=== PATIENT | female | born 1975 | race Caucasian/White ===

== ENCOUNTER 2016-09-13 21:27 | Emergency (ER) | payer BC ==
--- NOTE | 2016-09-13 23:25 | ED ORDER SUMMARY ---
..... Patient: LOU CONTE OrderSheet [facility] VisitID: [id number] [place] [address] 41y, F Registration Date/Time: 09/13/2016 ORDER SHEET Weight: 79.3 kg (stated) Allergies: No Known Drug Allergy GENERAL ORDERS: MEDICATION ORDERS: Toradol IM 60 mg (NOW) (22:02 09/13/2016 Gaurav GENAO) (Ack 22:19 HSoule) (22:34 HSoule) Soma PO 350 mg (NOW) (22:02 09/13/2016 Gaurav GENAO) (Ack 22:19 HSoule) (22:35 HSoule) Dilaudid IM 1 mg (NOW) (22:02 09/13/2016 Gaurav GENAO) (Ack 22:19 HSoule) (22:35 HSoule) IV FLUIDS: ORDER SHEET NOTES: [Electronically signed by Venus Pascual (00:03 09/14/2016)] [Electronically signed by Les Skelton MD (20:48 09/14/2016)] [Electronically locked/signed by Venus Pascual (00:03 09/14/2016)]
--- NOTE | 2016-09-13 23:25 | ED ORDER SUMMARY ---
..... Patient: LOU CONTE OrderSheet [facility] VisitID: [id number] [place] [address] 41y, F Registration Date/Time: 09/13/2016 ORDER SHEET Weight: 79.3 kg (stated) Allergies: No Known Drug Allergy GENERAL ORDERS: MEDICATION ORDERS: Toradol IM 60 mg (NOW) (22:02 09/13/2016 Gaurav GENAO) (Ack 22:19 HSoule) (22:34 HSoule) Soma PO 350 mg (NOW) (22:02 09/13/2016 Gaurav GENAO) (Ack 22:19 HSoule) (22:35 HSoule) Dilaudid IM 1 mg (NOW) (22:02 09/13/2016 Gaurav GENAO) (Ack 22:19 HSoule) (22:35 HSoule) IV FLUIDS: ORDER SHEET NOTES: [Electronically signed by Venus Pascual (00:03 09/14/2016)] [Electronically signed by Les Skelton MD (20:48 09/14/2016)] [Electronically locked/signed by Venus Pascual (00:03 09/14/2016)]
--- NOTE | 2016-09-13 23:25 | ED CLINICAL REPORT ---
Clinical Report - Physicians/Mid Levels [facility] [address] [place] [address] 09/13/2016 21:29 Patient: LOU CONTE Time Seen: 21:45 Sep 13 2016. Arrived- By private vehicle. Historian- patient. CPT: ER phys charges level 4 (#[id number]). HISTORY OF PRESENT ILLNESS Chief Complaint: BACK PAIN. 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 (4 days). ( Patient reports that she was gardening four days ago and after she felt pretty stiff with some low back pain. She states she went to the chiropractor and has been taking anti-inflammatory for pain without relief. She states today she felt like she could not turn herself in bed, she cannot stand straight and she states she has severe muscle spasms. She denies serious injury but states she has had some lower back degeneration and issues in the past.). No history of recent trauma. and it is still present. It is described as being moderate in degree and in the area of the lower lumbar spine. The quality is noted to be sharp, dull, aching, "pain" and similar to prior episodes. No bladder dysfunction, bowel dysfunction, sensory loss or motor loss. Additional history - HAs been taking ibuprofen and vicodin. Pain seemed to get worse after chiropractor visit yesterday. Patient notes an injury. Mechanism of injury- she was lifting, turning and bending. No other injury. Similar symptoms previously: Recent medical care: Not recently seen/assessed. REVIEW OF SYSTEMS No fever, chills, eye irritation, difficulty with urination or urinary frequency. No hematuria, skin rash, headache, cough or difficulty breathing. No chest pain, abdominal pain, nausea or vomiting. All systems otherwise negative, except as recorded above. PAST HISTORY Ovarian cyst . Tubal Ligation. Problems: no known problems. Medications: None. Allergies: No Known Drug Allergy. SOCIAL HISTORY Former smoker. Occasional alcohol use. No drug use. ADDITIONAL NOTES The nursing notes have been reviewed. PHYSICAL EXAM Vital Signs: 09/13/2016 21:41 BP: 149/95. HR: 78. RR: 20. O2 saturation: 99%. Temp: 98 F. Pain level now: 10/10. Appearance: Alert. Appears to be in pain. Patient in moderate distress. HEENT: Normal external inspection. ENT: Pharynx normal. Neck: Normal inspection. Neck nontender. Painless ROM. CVS: Heart sounds normal. Respiratory: No respiratory distress. Abdomen: Nontender. Back: Muscle spasm of the back. Moderate soft tissue tenderness in the right lower and left lower lumbar area. Limited ROM in the back. No vertebral point tenderness. Skin: Skin warm. Normal skin color. No rash. Extremities: Extremities exhibit normal ROM. Extremities nontender. Neuro: Oriented X 3. Mood/affect normal. No motor deficit. No sensory deficit. Reflexes normal. PROGRESS AND PROCEDURES Course of Care: Toradol 60 mg IM Dilaudid 1 mg iM Soma 1 po Patient is stable. Symptoms much better. Patient/family counseled. Disposition: Discharged. Condition: stable and improved. CLINICAL IMPRESSION Acute lumbar strain. INSTRUCTIONS Apply ice for 15-20 minutes three times a day for one days followed by moist heat 15-20 minutes three times a day for one weeks until better. Limit lifting. No strenuous activity. Warnings: SEDATIVE MEDICATION: You were given sedative medication during your visit. Do not drive or operate dangerous machinery. GENERAL WARNINGS: Return or contact your physician immediately if your condition worsens or changes unexpectedly, if not improving as expected, or if other problems arise. Prescription Medications: Ibuprofen 600mg tablets: take 1 tablet orally every 8 hours as needed for pain. Dispense thirty (30). No refills. Soma 350 mg: Take 1 orally every 6 hours as needed for muscle spasm. Dispense twenty (20). No refills. Substitution is permissible. Oxycodone/APAP 5 mg/325 mg: take 1-2 tablets orally every 4 hours as needed for pain. Dispense twenty (20). No refill. Follow-up: Follow up with your doctor in one week. Call for an appointment. Understanding of the discharge instructions verbalized by patient. (Electronically signed by Lse Skelton MD 09/14/2016 20:48)
--- NOTE | 2016-09-13 23:25 | ED CLINICAL REPORT ---
Clinical Report - Physicians/Mid Levels [facility] [address] [place] [address] 09/13/2016 21:29 Patient: LOU CONTE Time Seen: 21:45 Sep 13 2016. Arrived- By private vehicle. Historian- patient. CPT: ER phys charges level 4 (#[id number]). HISTORY OF PRESENT ILLNESS Chief Complaint: BACK PAIN. 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 (4 days). ( Patient reports that she was gardening four days ago and after she felt pretty stiff with some low back pain. She states she went to the chiropractor and has been taking anti-inflammatory for pain without relief. She states today she felt like she could not turn herself in bed, she cannot stand straight and she states she has severe muscle spasms. She denies serious injury but states she has had some lower back degeneration and issues in the past.). No history of recent trauma. and it is still present. It is described as being moderate in degree and in the area of the lower lumbar spine. The quality is noted to be sharp, dull, aching, "pain" and similar to prior episodes. No bladder dysfunction, bowel dysfunction, sensory loss or motor loss. Additional history - HAs been taking ibuprofen and vicodin. Pain seemed to get worse after chiropractor visit yesterday. Patient notes an injury. Mechanism of injury- she was lifting, turning and bending. No other injury. Similar symptoms previously: Recent medical care: Not recently seen/assessed. REVIEW OF SYSTEMS No fever, chills, eye irritation, difficulty with urination or urinary frequency. No hematuria, skin rash, headache, cough or difficulty breathing. No chest pain, abdominal pain, nausea or vomiting. All systems otherwise negative, except as recorded above. PAST HISTORY Ovarian cyst . Tubal Ligation. Problems: no known problems. Medications: None. Allergies: No Known Drug Allergy. SOCIAL HISTORY Former smoker. Occasional alcohol use. No drug use. ADDITIONAL NOTES The nursing notes have been reviewed. PHYSICAL EXAM Vital Signs: 09/13/2016 21:41 BP: 149/95. HR: 78. RR: 20. O2 saturation: 99%. Temp: 98 F. Pain level now: 10/10. Appearance: Alert. Appears to be in pain. Patient in moderate distress. HEENT: Normal external inspection. ENT: Pharynx normal. Neck: Normal inspection. Neck nontender. Painless ROM. CVS: Heart sounds normal. Respiratory: No respiratory distress. Abdomen: Nontender. Back: Muscle spasm of the back. Moderate soft tissue tenderness in the right lower and left lower lumbar area. Limited ROM in the back. No vertebral point tenderness. Skin: Skin warm. Normal skin color. No rash. Extremities: Extremities exhibit normal ROM. Extremities nontender. Neuro: Oriented X 3. Mood/affect normal. No motor deficit. No sensory deficit. Reflexes normal. PROGRESS AND PROCEDURES Course of Care: Toradol 60 mg IM Dilaudid 1 mg iM Soma 1 po Patient is stable. Symptoms much better. Patient/family counseled. Disposition: Discharged. Condition: stable and improved. CLINICAL IMPRESSION Acute lumbar strain. INSTRUCTIONS Apply ice for 15-20 minutes three times a day for one days followed by moist heat 15-20 minutes three times a day for one weeks until better. Limit lifting. No strenuous activity. Warnings: SEDATIVE MEDICATION: You were given sedative medication during your visit. Do not drive or operate dangerous machinery. GENERAL WARNINGS: Return or contact your physician immediately if your condition worsens or changes unexpectedly, if not improving as expected, or if other problems arise. Prescription Medications: Ibuprofen 600mg tablets: take 1 tablet orally every 8 hours as needed for pain. Dispense thirty (30). No refills. Soma 350 mg: Take 1 orally every 6 hours as needed for muscle spasm. Dispense twenty (20). No refills. Substitution is permissible. Oxycodone/APAP 5 mg/325 mg: take 1-2 tablets orally every 4 hours as needed for pain. Dispense twenty (20). No refill. Follow-up: Follow up with your doctor in one week. Call for an appointment. Understanding of the discharge instructions verbalized by patient. (Electronically signed by Les Skelton MD 09/14/2016 20:48)
--- NOTE | 2016-09-13 23:25 | ED NURSING NOTES ---
Clinical Report - Nurses [facility] [address] [place] [address] 09/13/2016 21:29 Patient: LOU CONTE TRIAGE Triage time 21:35 Sep 13 2016. Acuity: LEVEL 3. Chief Complaint: BACK PAIN. 21:45 09/13/16. SEPSIS SCREEN: Sepsis Screen: negative. Negative (no infection suspected/documented). ELEANOR COMA SCORE: [place] Coma Scale: 15- eyes open spontaneously (4); best verbal response- oriented x 4 (5); best motor response- obeys commands (6). --21:45 Venus Pascual 21:41 09/13/16. BP: 149/95. HR: 78. RR: 20. O2 saturation: 99%. Temp: 98 F (oral). Pain level now: 12/22. --21:45 Venus Pascual. Weight: 79.3 kg stated. Height/Length: 64 inches Per Patient. BMI: 30. --21:44 Venus Pascual. Medications None. --21:43 Venus Pascual. Medication/allergy information source: the patient. --21:45 Venus Pascual. Allergies No Known Drug Allergy. --21:43 Venus Pascual. History Arrived by private vehicle. Historian: patient. Accompanied by family. Onset. (4 days). ( Patient reports that she was gardening four days ago and after she felt pretty stiff with some low back pain. She states she went to the chiropractor and has been taking anti-inflammatory for pain without relief. She states today she felt like she could not turn herself in bed, she cannot stand straight and she states she has severe muscle spasms. She denies serious injury but states she has had some lower back degeneration and issues in the past.). She has had numbness, weakness and trouble walking. No history of recent trauma. PAST MEDICAL HX: Immunizations: up-to-date. Last normal menstrual period now. SOCIAL HX: Former smoker, end date 1996. Occasional alcohol use. No drug use. No infectious disease exposure. ABUSE ASSESSMENT: No report of abuse. FALL RISK ASSESSMENT: Fall risk assessment completed. No fall risk identified. NUTRITIONAL RISK ASSESSMENT: The nutritional risk assessment revealed no deficiencies. FUNCTIONAL ASSESSMENT: Functional assessment: no impairments noted. LEARNING NEEDS ASSESSMENT: The learning needs assessment revealed no barriers. SKIN INTEGRITY ASSESSMENT: Skin integrity risk assessment completed. No skin integrity risk identified. --21:45 Venus Pascual. PROBLEMS: no known problems. ADDITIONAL SURGERIES: Ovarian cyst . Tubal Ligation. --21:44 Venus Pascual. Interventions ID band on patient. To treatment room. --21:45 Venus Pascual. PHYSICAL ASSESSMENT To room via wheelchair. Patient gowned. GENERAL / NEURO / PSYCH: Alert. Oriented X 4. Appears in pain. RESPIRATORY: Respirations not labored. CVS: Normal heart rate and rhythm. BACK: Normal inspection of the neck and back. Limited ROM. Difficulty sitting and unable to lay flat. No neck or back tenderness. --21:46 Venus Pascual. NURSING PROGRESS NOTES 21:46 09/13/16. Pulse oximeter and NIBP monitor placed on patient; monitor alarms on. Cold pack applied. Patient gowned. Reassurance given to the patient and patient's family. Two patient identifiers checked. Call light placed in reach. Side rails up x 1. Bed placed in lowest position. Brakes of bed on. Patient ready for evaluation- chart flagged and ED physician notified. --21:46 Venus Pascual 22:34 09/13/2016 Toradol (Ketorolac Tromethamine) IM 60 mg given. Given in the left deltoid. Allergies verified and confirmed 5 rights. --22:34 Venus Pascual 22:34 09/13/2016 Soma (Carisoprodol) PO Tablets 350 mg given. Allergies verified, confirmed 5 rights and sedative warning given to the patient and patient's family. --22:35 Venus Pascual 22:35 09/13/2016 Dilaudid (HYDROmorphone HCl PF) IM 1 mg given. Given in the right deltoid. Allergies verified, confirmed 5 rights and sedative warning given to the patient and patient's family. --22:35 Venus Pascual Pulse oximeter and NIBP monitor placed on patient; monitor alarms on. --22:35 Venus Pascual 22:35 09/13/16. BP: 119/74. HR: 60. RR: 20. O2 saturation: 100%. Pain level now: 11/22. --22:35 Venus Pascual Reassessment after medication administered. Overall patient status- she states feels better. --22:57 Venus Pascual. DISPOSITION / DISCHARGE The goals identified in the patient's plan of care were met. FALL RISK ASSESSMENT: Fall risk assessment completed. No fall risk identified. --22:57 Venus Pascual 22:56 09/13/16. BP: 120/60. HR: 60. RR: 20. O2 saturation: 100%. Pain level now: 05/22. --22:57 Venus Pascual 23:35 09/13/16. No learning barriers present. Discharge instructions provided and reviewed with the patient and spouse. Reviewed warnings (Do not drive while taking sedative medications.). Reviewed medication(s) side effects, precautions, dosing and course information. Prescription(s) given to the patient. Reviewed need for increased fluid intake. Activity restrictions (light lifting) reviewed. Patient verbalized understanding. Written instructions provided in Turkish. ( Follow up with your PCP in five days. Ice for twenty minutes at a time, anti-inflammatories as needed. Take caution when taking sedative medications. Patient and spouse verbalized understanding and had no additional questions at this time.). The patient was discharged by the physician. She was discharged home and accompanied by spouse. She left the Emergency Department ambulatory and via private vehicle. Spouse driving. --23:35 Venus Pascual. Locked/Released at 09/14/2016 0:03 by Venus Pascual,
--- NOTE | 2016-09-14 20:48 | ED MED RECONCILIATION SUMMARY ---
Patient: LOU CONTE Medication Reconciliation Report [facility] VisitID: [id number] [place] [address] 41y, F Registration Date/Time: 09/13/2016 Weight: 79.3 kg Height/Length: 64 in. BMI: 30.0 ALLERGIES: No Known Drug Allergy The patient's Home Medications are listed below: NONE. The source(s) of the original Home Medication information: patient The following Medications were given to the patient in the Emergency Department: Toradol [IM] IM 60 mg, administered: 09/13/2016 10:34:00 PM Soma [PO] PO 350 mg, administered: 09/13/2016 10:34:00 PM Dilaudid [IM] IM 1 mg, administered: 09/13/2016 10:35:00 PM The following Medications were prescribed to the patient: Ibuprofen 600mg tablets: take 1 tablet orally every 8 hours as needed for pain. Dispense thirty (30). No refills. -- Les Skelton MD Soma 350 mg: Take 1 orally every 6 hours as needed for muscle spasm. Dispense twenty (20). No refills. Substitution is permissible. -- Les Skelton MD Oxycodone/APAP 5 mg/325 mg: take 1-2 tablets orally every 4 hours as needed for pain. Dispense twenty (20). No refill. -- Les Skelton MD
--- NOTE | 2016-09-14 20:48 | ED DISCHARGE INSTRUCTIONS ---
Patient: LOU CONTE General Instructions [facility] VisitID: [id number] [place] [address] 41y, F Registration Date/Time: 09/13/2016 Acute lumbar strain. INSTRUCTIONS Apply ice for 15-20 minutes three times a day for one days followed by moist heat 15-20 minutes three times a day for one weeks until better. Limit lifting. No strenuous activity. Warnings: SEDATIVE MEDICATION: You were given sedative medication during your visit. Do not drive or operate dangerous machinery. GENERAL WARNINGS: Return or contact your physician immediately if your condition worsens or changes unexpectedly, if not improving as expected, or if other problems arise. Prescription Medications: Ibuprofen 600mg tablets: take 1 tablet orally every 8 hours as needed for pain. Dispense thirty (30). No refills. Soma 350 mg: Take 1 orally every 6 hours as needed for muscle spasm. Dispense twenty (20). No refills. Substitution is permissible. Oxycodone/APAP 5 mg/325 mg: take 1-2 tablets orally every 4 hours as needed for pain. Dispense twenty (20). No refill. Follow-up: Follow up with your doctor in one week. Call for an appointment. Understanding of the discharge instructions verbalized by patient. ADDITIONAL INFORMATION Back Pain [Acute Or Chronic] Back pain is usually caused by an injury to the muscles or ligaments of the spine. Sometimes the disks that separate each bone in the spine may bulge and cause pain by pressing on a nearby nerve. Back pain may also appear after a sudden twisting/bending force (such as in a car accident), after a simple awkward movement, or lifting something heavy with poor body positioning. In either case, muscle spasm is often present and adds to the pain. Acute back pain usually gets better in one to two weeks. Back pain related to disk disease, arthritis in the spinal joints or spinal stenosis (narrowing of the spinal canal) can become chronic and last for months or years. Unless you had a physical injury (for example, a car accident or fall) X-rays are usually not ordered for the initial evaluation of back pain. If pain continues and does not respond to medical treatment, x-rays and other tests may be performed at a later time. Home Care: You may need to stay in bed the first few days. But, as soon as possible, begin sitting or walking to avoid problems with prolonged bed rest (muscle weakness, worsening back stiffness and pain, blood clots in the legs). When in bed, try to find a position of comfort. A firm mattress is best. Try lying flat on your back with pillows under your knees. You can also try lying on your side with your knees bent up towards your chest and a pillow between your knees. Avoid prolonged sitting. This puts more stress on the lower back than standing or walking. During the first two days after injury, apply an ICE PACK to the painful area for 20 minutes every 2-4 hours. This will reduce swelling and pain. HEAT (hot shower, hot bath or heating pad) works well for muscle spasm. You can start with ice, then switch to heat after two days. Some patients feel best alternating ice and heat treatments. Use the one method that feels the best to you. You may use acetaminophen (Tylenol) or ibuprofen (Motrin, Advil) to control pain, unless another pain medicine was prescribed. [NOTE: If you have chronic liver or kidney disease or ever had a stomach ulcer or GI bleeding, talk with your doctor before using these medicines.] Be aware of safe lifting methods and do not lift anything over 15 pounds until all the pain is gone. Follow Up with your doctor or this facility if your symptoms do not start to improve after one week. Physical therapy may be needed. [NOTE: If X-rays were taken, they will be reviewed by a radiologist. You will be notified of any new findings that may affect your care.] Get Prompt Medical Attention if any of the following occur: Pain becomes worse or spreads to your legs Weakness or numbness in one or both legs Loss of bowel or bladder control Numbness in the groin or genital area Oxycodone Hydrochloride, Acetaminophen Oral tablet What is this medicine? ACETAMINOPHEN; OXYCODONE (a set a KUSUM pradeep fen; ox i KOE done) is a pain reliever. It is used to treat mild to moderate pain. How should I use this medicine? Take this medicine by mouth with a full glass of water. Follow the directions on the prescription label. Take your medicine at regular intervals. Do not take your medicine more often than directed. Talk to your staff command and control officer regarding the use of this medicine in children. Special care may be needed. Patients over 65 years old may have a stronger reaction and need a smaller dose. What side effects may I notice from receiving this medicine? Side effects that you should report to your doctor or health home care and home health aides teacher as soon as possible: allergic reactions like skin rash, itching or hives, swelling of the face, lips, or tongue breathing difficulties, wheezing confusion light headedness or fainting spells severe stomach pain yellowing of the skin or the whites of the eyes Side effects that usually do not require medical attention (report to your doctor or health home care and home health aides teacher if they continue or are bothersome): dizziness drowsiness nausea vomiting What may interact with this medicine? alcohol antihistamines barbiturates like amobarbital, butalbital, butabarbital, methohexital, pentobarbital, phenobarbital, thiopental, and secobarbital benztropine drugs for bladder problems like solifenacin, trospium, oxybutynin, tolterodine, hyoscyamine, and methscopolamine drugs for breathing problems like ipratropium and tiotropium drugs for certain stomach or intestine problems like propantheline, homatropine methylbromide, glycopyrrolate, atropine, belladonna, and dicyclomine general anesthetics like etomidate, ketamine, nitrous oxide, propofol, desflurane, enflurane, halothane, isoflurane, and sevoflurane medicines for depression, anxiety, or psychotic disturbances medicines for sleep muscle relaxants naltrexone narcotic medicines (opiates) for pain phenothiazines like perphenazine, thioridazine, chlorpromazine, mesoridazine, fluphenazine, prochlorperazine, promazine, and trifluoperazine scopolamine tramadol trihexyphenidyl What if I miss a dose? If you miss a dose, take it as soon as you can. If it is almost time for your next dose, take only that dose. Do not take double or extra doses. Where should I keep my medicine? Keep out of the reach of children. This medicine can be abused. Keep your medicine in a safe place to protect it from theft. Do not share this medicine with anyone. Selling or giving away this medicine is dangerous and against the law. Store at room temperature between 20 and 25 degrees C (68 and 77 degrees F). Keep container tightly closed. Protect from light. This medicine may cause accidental overdose and if it is taken by other adults, children, or pets. Flush any unused medicine down the toilet to reduce the chance of harm. Do not use the medicine after the expiration date. What should I tell my health care provider before I take this medicine? They need to know if you have any of these conditions: brain tumor Crohn's disease, inflammatory bowel disease, or ulcerative colitis drink more than 3 alcohol containing drinks per day drug abuse or addiction head injury heart or circulation problems kidney disease or problems going to the bathroom liver disease lung disease, asthma, or breathing problems an unusual or allergic reaction to acetaminophen, oxycodone, other opioid analgesics, other medicines, foods, dyes, or preservatives or trying to get breast-feeding What should I watch for while using this medicine? Tell your doctor or health home care and home health aides teacher if your pain does not go away, if it gets worse, or if you have new or a different type of pain. You may develop tolerance to the medicine. Tolerance means that you will need a higher dose of the medication for pain relief. Tolerance is normal and is expected if you take this medicine for a long time. Do not suddenly stop taking your medicine because you may develop a severe reaction. Your body becomes used to the medicine. This does NOT mean you are addicted. Addiction is a behavior related to getting and using a drug for a non-medical reason. If you have pain, you have a medical reason to take pain medicine. Your doctor will tell you how much medicine to take. If your doctor wants you to stop the medicine, the dose will be slowly lowered over time to avoid any side effects. You may get drowsy or dizzy. Do not drive, use machinery, or do anything that needs mental alertness until you know how this medicine affects you. Do not stand or sit up quickly, especially if you are an older patient. This reduces the risk of dizzy or fainting spells. Alcohol may interfere with the effect of this medicine. Avoid alcoholic drinks. There are different types of narcotic medicines (opiates) for pain. If you take more than one type at the same time, you may have more side effects. Give your health care provider a list of all medicines you use. Your doctor will tell you how much medicine to take. Do not take more medicine than directed. Call emergency for help if you have problems breathing. The medicine will cause constipation. Try to have a bowel movement at least every 2 to 3 days. If you do not have a bowel movement for 3 days, call your doctor or health home care and home health aides teacher. Do not take Tylenol (acetaminophen) or medicines that have acetaminophen with this medicine. Too much acetaminophen can be very dangerous. Many nonprescription medicines contain acetaminophen. Always read the labels carefully to avoid taking more acetaminophen. You have been given the following additional information: Back Pain (Acute Or Chronic) Oxycodone Hydrochloride, Acetaminophen Oral tablet Limit lifting. No strenuous activity. (Electronically signed by Les Skelton MD 09/14/2016 20:48)
--- NOTE | 2016-09-14 20:48 | ED MED RECONCILIATION SUMMARY ---
Patient: LOU CONTE Medication Reconciliation Report [facility] VisitID: [id number] [place] [address] 41y, F Registration Date/Time: 09/13/2016 Weight: 79.3 kg Height/Length: 64 in. BMI: 30.0 ALLERGIES: No Known Drug Allergy The patient's Home Medications are listed below: NONE. The source(s) of the original Home Medication information: patient The following Medications were given to the patient in the Emergency Department: Toradol [IM] IM 60 mg, administered: 09/13/2016 10:34:00 PM Soma [PO] PO 350 mg, administered: 09/13/2016 10:34:00 PM Dilaudid [IM] IM 1 mg, administered: 09/13/2016 10:35:00 PM The following Medications were prescribed to the patient: Ibuprofen 600mg tablets: take 1 tablet orally every 8 hours as needed for pain. Dispense thirty (30). No refills. -- Les Skelton MD Soma 350 mg: Take 1 orally every 6 hours as needed for muscle spasm. Dispense twenty (20). No refills. Substitution is permissible. -- Les Skelton MD Oxycodone/APAP 5 mg/325 mg: take 1-2 tablets orally every 4 hours as needed for pain. Dispense twenty (20). No refill. -- Les Skelton MD
--- NOTE | 2016-09-14 20:48 | ED MAR SUMMARY ---
..... Medication Administration Record [facility] [address] [place] [address] Patient: LOU CONTE Visit ID: [id number] 41y, F Weight: 79.3 kg Height/Length: 64 in BMI: 30 ALLERGIES: No Known Drug Allergy Given :09/13/2016 Venus Pascual, Medication Administered: TORADOL [IM] (KETOROLAC TROMETHAMINE), Dose: 60 mg IM. Medication Ordered: Toradol IM 60 mg (NOW). Given :09/13/2016 Venus Pascual, Medication Administered: SOMA [PO] (CARISOPRODOL), Dose: 350 mg Tablets PO. Medication Ordered: Soma PO 350 mg (NOW). Given :09/13/2016 Venus Pascual, Medication Administered: DILAUDID [IM] (HYDROMORPHONE HCL PF), Dose: 1 mg IM. Medication Ordered: Dilaudid IM 1 mg (NOW).
--- NOTE | 2016-09-14 20:48 | ED MAR SUMMARY ---
..... Medication Administration Record [facility] [address] [place] [address] Patient: LOU CONTE Visit ID: [id number] 41y, F Weight: 79.3 kg Height/Length: 64 in BMI: 30 ALLERGIES: No Known Drug Allergy Given :09/13/2016 Venus Pascual, Medication Administered: TORADOL [IM] (KETOROLAC TROMETHAMINE), Dose: 60 mg IM. Medication Ordered: Toradol IM 60 mg (NOW). Given :09/13/2016 Venus Pascual, Medication Administered: SOMA [PO] (CARISOPRODOL), Dose: 350 mg Tablets PO. Medication Ordered: Soma PO 350 mg (NOW). Given :09/13/2016 Venus Pascual, Medication Administered: DILAUDID [IM] (HYDROMORPHONE HCL PF), Dose: 1 mg IM. Medication Ordered: Dilaudid IM 1 mg (NOW).
== END 2016-09-13 23:35 | disposition home or self-care (01) ==
LOC: ED SRH 21:27
DX: S39.012A Strain of muscle, fascia and tendon of lower back, initial encounter (principal); X50.0XXA Overexertion from strenuous movement or load, initial encounter; Y93.H2 Activity, gardening and landscaping; Y92.096 Garden or yard of other non-institutional residence as the place of occurrence of the external cause; Z87.891 Personal history of nicotine dependence